=== PATIENT | female | born 1965 | race Caucasian/White ===

== ENCOUNTER → 2017-09-07 | Outpatient (CLI) | payer OTHER ==
[~2017-09-07] MED LIST: CAPECITABINE500 MG PO; LIDOCAINE-HYDROC7 GM PR; MILK THISTLE140 M1 PO; PROBIOTIC ACID1 EAC3 PO; TRAMADOL HCL50 MG PO; [UNRECOGNIZED DRUG - OTHER] PO
== END | disposition home or self-care (01) ==
LOC: NUC 08:00
DX: I89.0 Lymphedema, not elsewhere classified (principal)
CPT/HCPCS: 78195; A9541